=== PATIENT | male | born 1995 | race Caucasian/White ===

== ENCOUNTER 2020-12-21 20:56 | Emergency (ER) | payer SELFPAY ==
[~2020-12-21] VITALS: Ht 185.4 cm; Wt 93.0 kg
[2020-12-21 21:19] VITALS: BP 106/67
[2020-12-21] MEDS ORDERED: METH-773 MT (22:14)
== END 2020-12-21 22:45 | disposition home or self-care (01) ==
LOC: ER 20:56
DX: S39.012A Strain of muscle, fascia and tendon of lower back, initial encounter (principal); X50.3XXA Overexertion from repetitive movements, initial encounter; Y93.89 Activity, other specified; Y92.89 Other specified places as the place of occurrence of the external cause; Y99.0 Civilian activity done for income or pay
CPT/HCPCS: 99283